=== PATIENT | male | born 1975 | race Caucasian/White ===

== ENCOUNTER → 2020-06-18 | Outpatient (CLI) | payer OTHER ==
[~2020-06-18] MED LIST: ATORVASTATIN CA20 MG PO; FINASTERIDE1 MG PO; OMEPRAZOLE 20 M20 M1 PO; PROAIR HFA8.5 GM INH
== END ==
LOC: LAB
PROVIDERS: ATTEND Student in an Organized Health Care Education/Training Program
DX: Z01.812 Encounter for preprocedural laboratory examination (principal); Z20.828 Contact with and (suspected) exposure to other viral communicable diseases